=== PATIENT | male | born 1980 | race Caucasian/White ===

== ENCOUNTER 2021-01-12 14:17 | Emergency (ER) | payer BC ==
[~2021-01-12] VITALS: Ht 180.3 cm; Wt 78.1 kg
[2021-01-12] MEDS ORDERED: NAPROXEN 250 MG TAB PO ONE (15:40)
[2021-01-12] MEDS ORDERED: AUGMENTIN 875 MG TAB PO ONE (15:40)
[2021-01-12] MEDS ORDERED: AUGM875T28 PO (15:42)
[2021-01-12] MEDS ORDERED: MAGICMW SSP (15:42)
[2021-01-12] MEDS ORDERED: NAPR500T6 PO (15:42)
[2021-01-12] MEDS ORDERED: HYDR-3713 PO (15:42)
--- OUTSIDE RECORDS SUMMARY | 2021-01-12 15:43 | CCD ---
Author Author [facility] Organization [facility] Address Unknown Phone Unavailable Care Team Providers Care Director [employer] Name Role Phone Sanchez, Annia BOW MACHINE OPERATOR Unavailable Unavailable Sanchez, Annia BOW MACHINE OPERATOR Unavailable Unavailable Sanchez, Annia BOW MACHINE OPERATOR Unavailable Unavailable Sanchez, Annia BOW MACHINE OPERATOR Unavailable Unavailable Sanchez, Annia BOW MACHINE OPERATOR Unavailable Unavailable Sanchez, Annia BOW MACHINE OPERATOR Unavailable Unavailable Sanchez, Annia BOW MACHINE OPERATOR Unavailable Unavailable Sanchez, Annia BOW MACHINE OPERATOR Unavailable Unavailable Sanchez, Annia BOW MACHINE OPERATOR Unavailable Unavailable Sanchez, Annia BOW MACHINE OPERATOR Unavailable Unavailable Sanchez, Annia BOW MACHINE OPERATOR Unavailable Unavailable Sanchez, Annia BOW MACHINE OPERATOR Unavailable Unavailable Sanchez, Annia BOW MACHINE OPERATOR Unavailable Unavailable Re-disclosure Warning The records that you are about to access may contain information from federally-assisted alcohol or drug abuse programs. If such information is present, then the following federally mandated warning applies: This information has been disclosed to you from records protected by federal confidentiality rules (42 CFR part 2). The federal rules prohibit you from making any further disclosure of this information unless further disclosure is expressly permitted by the written consent of the person to whom it pertains or as otherwise permitted by 42 CFR part 2. A general authorization for the release of medical or other information is NOT sufficient for this purpose. The Federal rules restrict any use of the information to criminally investigate or prosecute any alcohol or drug abuse patient.The records that you are about to access may contain highly sensitive health information, the redisclosure of which is protected by Article 27-F of the [facility] Public Health law. If you continue you may have access to information: Regarding HIV / AIDS; Provided by facilities licensed or operated by the [facility] Office of Mental Health; or Provided by the [facility] Office for People With Developmental Disabilities. If such information is present, then the following [facility] mandated warning applies: This information has been disclosed to you from confidential records which are protected by state law. State law prohibits you from making any further disclosure of this information without the specific written consent of the person to whom it pertains, or as otherwise permitted by law. Any unauthorized further disclosure in violation of state law may result in a fine or half-way sentence or both. A general authorization for the release of medical or other information is NOT sufficient authorization for further disc losure. Encounters Encounter Providers Location Date Indications Data Source(s ) Outpatient Attender: Annia trotter 06/14/2020 01:45:00 PM EDT [facility] ([facility], [facility]) Medications No Information Insurance Providers Payer name Policy type / Coverage type Policy ID Covered constitution party ID Covered constitution party's relationship to [place] Policy [place] Plan Information [facility] PPO [id number] SP [id number] Problems, Conditions, and Diagnoses No Information Surgeries/Procedures No Information Results ID Date Data Source [id number] 06/14/2020 12:00:00 AM EDT [facility] Name Value Range Interpretation Code Description Data Kely rce(s) Supporting Document(s) SARS-CoV2 Rapid Antigen Positive [facility] Procedure Social History No Information Vital Signs ID Date Data Source UNK Name Value Range Interpretation Code Description Data Source(s) Systolic blood pressure 123 mm[Hg] 123 mm[Hg] M [facility] ([facility], [facility]) Diastolic blood pressure 87 mm[Hg] 87 mm[Hg] [facility] ([facility], [facility]) Heart rate 77 /min 77 /min [facility] ([facility], [facility]) Respiratory rate 16 /min 16 /min [facility] ( [facility], [facility]) Oxygen saturation in Arterial blood by P[facility] 98 % 98 % [facility]) Body temperature 98.4 [degF] 98.4 [degF] [facility] ([facility], [facility]) Body weight 175.00 [lb_av] 175.00 [lb_av] HAYLIE Aaron ([facility], [facility]) Body height 71 [in_i] 71 [in_i] GENIE ([facility], [facility]) 5'11" Body mass index (BMI) [Ratio] 24.4 kg/m2 24.4 k g/m2 [facility] ([facility], [facility])
[2021-01-12 16:13] VITALS: BP 141/70
== END 2021-01-12 16:15 | disposition home or self-care (01) ==
LOC: M ED 14:17
DX: K03.81 Cracked tooth (principal)